=== PATIENT | male | born 1985 | race African-American/Black ===

== ENCOUNTER 2016-09-17 17:52 | Emergency (ER) | payer OTHER ==
[~2016-09-17] VITALS: Ht 185.4 cm; Wt 81.7 kg
[2016-09-17 18:13] LABS: URINE BILIRUBIN NEGATIVE (Negative); URINE BLOOD NEGATIVE (Negative); URINE COLOR YELLOW; URINE GLUCOSE-RANDOM* NEGATIVE (Negative); URINE KETONES NEGATIVE (Negative); URINE LEUKOCYTES-REFLEX NEGATIVE (Negative); URINE PROTEIN (DIPSTICK) NEGATIVE (Negative); URINE SPECIFIC GRAVITY 1.015 (1.003-1.035); URINE UROBILINOGEN 0.2 E.U./dl (0.2-1.0)
[2016-09-17 18:21] LABS: ABSOLUTE NEUTROPHILS 4.3 thou/uL (1.4-8.2); BASOPHILS 0.7 % (0.0-2.0); EOSINOPHILS 3.7 % (0.0-3.0); HEMATOCRIT 44.8 % (42.0-52.0); HEMOGLOBIN 15.2 gm/dL (14.0-18.0); MCHC 33.9 % (28.0-37.0); MCV 91.4 fL (80.0-100.0); MONOCYTES 8.8 % (1.0-8.0); PLATELET COUNT 249 thou/uL (150-400); POLYS 51.8 % (36.0-66.0); RDW 12.6 % (10.5-14.5); WBC 8.3 thou/uL (4.0-11.0)
[2016-09-17 18:24] LABS: MANUAL DIFF NO
[2016-09-17 18:33] LABS: CALCIUM 9.4 mg/dL (8.5-10.1); CREATININE 1.4 mg/dL (0.6-1.3); POTASSIUM 4.2 mmol/L (3.5-5.1)
[2016-09-17 18:39] LABS: ALBUMIN 3.9 g/dL (3.4-5.0); TOTAL BILIRUBIN 0.4 mg/dL (<0.1-1.0); TOTAL PROTEIN 6.9 g/dL (6.4-8.2)
[2016-09-17] MEDS ORDERED: NAPROSYN500 MG PO (20:05)
[2016-09-17] MEDS ORDERED: PHENERGAN 25 MG25 M1 PO (20:05)
[2016-09-17] MEDS ORDERED: HYDROCODONE-AP1 EAC6 PO (20:05)
[2016-09-17 21:30] VITALS: BP 114/68
== END 2016-09-17 23:57 | disposition home or self-care (01) ==
LOC: ER 17:52
PROVIDERS: Physician Assistant
DX: R10.9 Unspecified abdominal pain (principal); R79.89 Other specified abnormal findings of blood chemistry

== ENCOUNTER 2016-09-21 22:14 | Emergency (ER) | payer OTHER ==
[~2016-09-21] VITALS: Ht 185.4 cm; Wt 79.4 kg
[~2016-09-21 22:14] MED LIST: HYDROCODONE-AP1 EAC6 PO; NAPROSYN500 MG PO; PHENERGAN 25 MG25 M1 PO
[2016-09-21 22:15] VITALS: BP 132/80
[2016-09-21] MEDS ORDERED: TORADOL 10 MG T10 MG PO (22:29)
[2016-09-21] MEDS ORDERED: LIORESAL 10 MG10 MG PO (22:29)
== END 2016-09-21 22:49 | disposition home or self-care (01) ==
LOC: ER 22:14
DX: M54.5 Low back pain (principal); F17.210 Nicotine dependence, cigarettes, uncomplicated; F10.99 Alcohol use, unspecified with unspecified alcohol-induced disorder